=== PATIENT | female | born 1995 | race Caucasian/White ===

== ENCOUNTER 2016-06-27 20:15 | Emergency (ER) | payer OTHER ==
[2016-06-27 20:15] VITALS: BMI 27.4
[2016-06-27 20:37] VITALS: BP 122/85; PULSE 74; TEMP 98.3; O2SAT 100
[2016-06-27 21:33] LABS: RBC URINE < 1 /hpf (0-3); URINE BACTERIA RARE (<OCC); URINE BILIRUBIN NEGATIVE (NEGATIVE); URINE BLOOD NEGATIVE (NEGATIVE); URINE COLOR Yellow (YELLOW); URINE GLUCOSE (UA) NORMAL (Normal); URINE KETONE NEGATIVE (NEGATIVE); URINE LEUKOCYTE ESTERASE TRACE Leu/uL (Negative); URINE PROTEIN NEGATIVE (NEGATIVE); URINE UROBILINOGEN NORMAL mg/dL (0.2-1.0); WBC URINE 2 /hpf (0-5)
--- NOTE | 2016-06-27 22:27 | C.PDOC ---
History Of Present Illness A 21 y/o female, LMP 05/20, , presents to the ER complaining that she did not have her period this month, noting her periods are normally regular. Pt also complains of colicky lower abdominal pain that began today with scant vaginal bleeding earlier in day, none since. . Pt took two test this weekend which were negative. Pt denies fever, chills, nausea, vomiting, active bleeding, frequency, urgency, dysuria, hematuria, vaginal discharge. pt's last BM was yesterday. Time Seen by Provider: 06/27/16 20:48 Chief Complaint (Nursing): Female Genitourinary History Per: Patient History/Exam Limitations: no limitations Onset/Duration Of Symptoms: Hrs, Days Current Symptoms Are (Timing): Still Present Severity: Mild Quality Of Discomfort: Other (Colicky lower abdominal pain) Associated Symptoms: denies: Fever, Chills, Nausea, Vomiting, Diarrhea, Urinary Symptoms Recent travel outside of the [place]: No Additional History Per: Patient Abnormal Vaginal Bleeding: Yes : 2 Para: 1 Miscarriage: 1 Past Medical History Reviewed: Historical Data, Nursing Documentation, Vital Signs Vital Signs: Last Vital Signs Temp 98.3 F 06/27/16 20:35 Pulse 74 06/27/16 20:35 Resp 20 06/27/16 23:19 BP 122/85 06/27/16 20:35 Pulse Ox 100 06/27/16 23:29 - Medical History PMH: Asthma Surgical History: Tonsillectomy - [facility] EPISIOTOMY (06/08/14) Family History: States: Unknown Family Hx - Social History Hx Tobacco Use: No Hx Alcohol Use: No Hx Substance Use: No - Immunization History Hx Tetanus Toxoid Vaccination: No Hx Influenza Vaccination: No Hx Pneumococcal Vaccination: No Review Of Systems Except As Marked, All Systems Reviewed And Found Negative. Constitutional: Negative for: Fever, Chills Gastrointestinal: Positive for: Abdominal Pain (Lower abdominal pain). Negative for: Nausea, Vomiting Genitourinary: Positive for: Vaginal Bleeding (spotted earlier). Negative for: Dysuria, Frequency, Incontinence, Hematuria, Vaginal Discharge Neurological: Negative for: Weakness, Numbness Physical Exam - Physical Exam Appears: Non-toxic, No Acute Distress Skin: Warm, Dry Head: Atraumatic, Normacephalic Eye(s): bilateral: Normal Inspection Chest: Symmetrical Cardiovascular: Rhythm Regular, No Murmur Respiratory: Normal Breath Sounds, No Accessory Muscle Use, No Rales, No Rhonchi , No Wheezing Gastrointestinal/Abdominal: Soft, Tenderness (Mild supapublic and left pelvic area tenderness), No Guarding, No Rebound Pelvic: No Vaginal Bleeding, No Vaginal Discharge, No Cervical Motion Tenderness , Adnexal Tenderness (Mild left side) Extremity: No Tenderness, No Pedal Edema, No Calf Tenderness Neurological/Psych: Oriented x3, Normal Speech, Normal Cognition, Normal Motor, Normal Sensation, Other (No focal deficit) Gait: Steady ED Course And Treatment O2 Sat by Pulse Oximetry: 100 (RA) Pulse Ox Interpretation: Normal Medical Decision Making Medical Decision Making: Impression: 21y/o female c/o lower abdominal pain that began today and abnormal menstrual period Plans: -US transvag - test 10:10 pm; discussed with us tech, they will call for patient when ready 10:50 pm patient asking when she will go for test, told withing next half hour 11:10 pm transport here to bring patient to ultrasound. pt not found in ED. pt eloped from ed. Disposition - Disposition Disposition: ELOPEMENT - ER ONLY Disposition Time: 11:00 Condition: GOOD - Clinical Impression Clinical Impression: Suprapubic abdominal pain - Scribe Statement The provider has reviewed the documentation as recorded by the Scribrohan martinez All medical record entries made by the Joleneibrohan were at my direction and personally dictated by me. I have reviewed the chart and agree that the record accurately reflects my personal performance of the history, physical exam, medical decision making, and the department course for this patient. I have also personally directed, reviewed, and agree with the discharge instructions and disposition.
[2016-06-27 23:21] VITALS: RESP 20
== END 2016-06-27 23:19 | disposition left against medical advice (07) ==
LOC: C.ER 20:15
DX: R10.30 Lower abdominal pain, unspecified (principal)

== ENCOUNTER 2017-03-26 10:48 | Emergency (ER) | payer MEDICAID, OTHER ==
[2017-03-26 10:49] VITALS: BMI 27.4
[2017-03-26 11:06] VITALS: BP 108/76; PULSE 87; RESP 18; TEMP 98.4; O2SAT 99
--- NOTE | 2017-03-26 12:02 | C.PDOC ---
History Of Present Illness 21 y/o female c/o lesion to distal right dugan x 2 weeks, looked like a blackhead per patient; she reports squeezing it and some pus came out. pt sts it is still a bit swollen and still with occasional drainage.no fever or chills , mild localized tenderness. Time Seen by Provider: 03/26/17 11:50 Chief Complaint (Nursing): Abnormal Skin Integrity History/Exam Limitations: no limitations Onset/Duration Of Symptoms: Days (14) Current Symptoms Are (Timing): Still Present Location Of Injury: Right: Leg Quality Of Symptoms: Painful Severity: Mild Past Medical History Reviewed: Historical Data, Nursing Documentation, Vital Signs Vital Signs: Last Vital Signs Temp 98.4 F 03/26/17 11:00 Pulse 87 03/26/17 11:00 Resp 18 03/26/17 11:00 BP 108/76 03/26/17 11:00 Pulse Ox 99 03/26/17 23:10 - Medical History PMH: Asthma Surgical History: Tonsillectomy - [facility] Procedures EPISIOTOMY (06/08/14) Family History: States: Unknown Family Hx - Social History Hx Tobacco Use: No Hx Alcohol Use: No Hx Substance Use: No - Immunization History Hx Tetanus Toxoid Vaccination: No Hx Influenza Vaccination: No Hx Pneumococcal Vaccination: No Review Of Systems Constitutional: Negative for: Fever, Chills Musculoskeletal: Positive for: Leg Pain (right) Skin: Positive for: Lesions (scant draining lesion distal right dugan) Neurological: Negative for: Weakness, Numbness Physical Exam - Physical Exam Appears: Non-toxic, No Acute Distress Skin: Warm, Dry, Other (no warmth, scant surrounding erythema to distal right dugan. punctate black morgan, scant drainagea bout quarter sized area. ) Extremity: Other (from rle, +2 dp pulse) Neurological/Psych: Oriented x3, Normal Speech, Normal Cognition ED Course And Treatment O2 Sat by Pulse Oximetry: 99 Medical Decision Making Medical Decision Making: pt with lesion rll; possible folliculitis/abscess, still firm with scant drainage. plan- upreg and antibiotics, warm compresses. Disposition Counseled Patient/Family Regarding: Studies Performed, Diagnosis, Need For Followup, Rx Given - Disposition Referrals: [facility] [Outside] Disposition: HOME/ ROUTINE Disposition Time: 12:23 Condition: GOOD Additional Instructions: Tylenol or Motrin for pain. Antibiotics as prescribed. Warm compresses several times a day (10-15 min at a time) to affected area. Follow up in medical clinic in a few days Prescriptions: Sulfamethoxazole/Trimethoprim [Bactrim DS 800 mg-160 mg] 1 tab PO BID #14 tab Instructions: Folliculitis Forms: [facility] (Ukrainian), General Discharge Instructions - Clinical Impression Clinical Impression: Folliculitis
== END 2017-03-26 12:33 | disposition home or self-care (01) ==
LOC: C.ER 10:48
DX: L73.9 Follicular disorder, unspecified (principal)